=== PATIENT | female | born 1985 | race Caucasian/White ===

== ENCOUNTER 2024-06-08 23:00 | Inpatient (IN) | payer MEDICAID ==
[~2024-06-08] VITALS: Ht 149.9 cm; Wt 55.9 kg
[2024-06-09] MEDS: KETOROLAC TROMETHAMINE 30 MG/ML VIAL IM ONE (01:32)
[2024-06-09] MEDS: HYDROCODONE/ACETAMINOPHEN 5-325 MG TABLET PO ONE (01:32)
[2024-06-09] MEDS: OxyCODONE HCL 5 MG IR TABLET PO ONE (03:57)
[2024-06-09 05:18] LABS: BASOPHILS % (AUTO) 0.2 % (0.0-2.0); EOSINOPHILS % (AUTO) 0 % (1.0-6.0); HEMATOCRIT 27.9 % (36-46); HEMOGLOBIN 8.2 g/dL (12.0-16.0); LYMPHOCYTES # (AUTO) 0.6 K/uL (1.0-4.8); LYMPHOCYTES % (AUTO) 4.6 % (22.0-44.0); MEAN CORPUSCULAR HGB CONC 29.3 G/dL (31.0-37.0); MEAN CORPUSCULAR VOLUME 72 fL (80-100); MONOCYTES # (AUTO) 0.3 K/uL (0.1-1.0); MONOCYTES % (AUTO) 2.5 % (2.0-9.0); NEUTROPHILS # (AUTO) 11.6 K/uL (1.8-7.7); PLATELET COUNT (AUTO) 429 K/uL (150-450); RED CELL DISTRIBUTION WIDTH 19.2 % (11.5-14.5); WHITE BLOOD COUNT (AUTO) 12.5 K/uL (4.5-11.0)
[2024-06-09 05:25] LABS: NEUTROPHILS % (AUTO) 92.7 % (40.0-70.0)
[2024-06-09 05:26] LABS: ANION GAP 9 mmol/L (8-16); CARBON DIOXIDE 25 mmol/L (22-29); CHLORIDE 104 mmol/L (98-107); CREATININE 0.58 mg/dL (0.60-1.30); GLOMERULAR FILTR. RATE CALC > 60 mL/min (>60); POTASSIUM 4.1 mmol/L (3.5-5.1); SODIUM SERUM 138 mmol/L (136-145)
[2024-06-09 05:38] LABS: GLUCOSE,RANDOM 146 mg/dL (70-110); UREA NITROGEN, BLOOD 12 mg/dL (7-18)
[2024-06-09 05:47] LABS: RBC MORPHOLOGY COMMENT ABNORMAL RBC MORPH
[2024-06-09] MEDS: MORPHINE SULFATE 4 MG/ML SYRINGE IVP ONE (06:00)
[2024-06-09 11:33] VITALS: BP 101/63; PULSE 72; RESP 18; TEMP 97.9; O2SAT 100
[2024-06-09] MEDS ORDERED: MORPHINE SULFATE 2 MG/ML SYRINGE IVP PRN (11:45)
[2024-06-09] MEDS ORDERED: MAGNESIUM HYDROXIDE SUSPENSION 30 ML UDCUP PO PRN (11:45)
[2024-06-09] MEDS ORDERED: BISACODYL 10 MG RECTAL RECTAL SUPPOSITORY PR PRN (11:45)
[2024-06-09] MEDS: HYDROCODONE/ACETAMINOPHEN 5-325 MG TABLET PO PRN (12:40)
[2024-06-09] MEDS: PredniSONE 20 MG TABLET PO SCH (12:40)
[2024-06-09] MEDS ORDERED: METH2.5T47 PO (13:43)
[2024-06-09] MEDS ORDERED: FOLI-130 PO (13:43)
[2024-06-09] MEDS ORDERED: ETAN50PE2 IM (13:43)
[2024-06-09] MEDS ORDERED: PRED5TAB2 PO (13:43)
[2024-06-09] MEDS ORDERED: NORE0.3520 PO (13:43)
[2024-06-09 14:57] LABS: ALCOHOL, URINE DRUG SCREEN NEGATIVE (NEGATIVE); AMPHET/METH SCREEN,URINE NEGATIVE (NEGATIVE); BARBITURATE SCREEN, URINE NEGATIVE (NEGATIVE); BENZODIAZEPINES SCREEN,URINE NEGATIVE (NEGATIVE); CANNABINOID SCREEN,URINE NEGATIVE (NEGATIVE); COCAINE SCREEN,URINE NEGATIVE (NEGATIVE); METHADONE SCREEN, URINE NEGATIVE (NEGATIVE); OPIATE SCREEN,URINE POSITIVE (NEGATIVE); PHENCYCLIDINE SCREEN,URINE NEGATIVE (NEGATIVE)
[2024-06-09] MEDS: HEPARIN SODIUM,PORCINE 5,000 UNITS/ML VIAL SQ SCH (15:02)
[2024-06-09] MEDS: IBUPROFEN 800 MG TABLET PO SCH (15:02)
[2024-06-09 15:18] VITALS: BP 105/66; PULSE 74; RESP 18; TEMP 98.4; O2SAT 100
[2024-06-09] MEDS: ACETAMINOPHEN 325 MG TABLET PO PRN (16:59)
[2024-06-09 20:01] VITALS: BP 101/65; PULSE 73; RESP 18; TEMP 98.6; O2SAT 98
[2024-06-09] MEDS: DOCUSATE SODIUM 100 MG CAPSULE PO SCH (20:16)
[2024-06-10 04:33] VITALS: BP 100/58; PULSE 75; RESP 18; TEMP 98.1; O2SAT 98
[2024-06-10 07:08] LABS: BASOPHILS % (AUTO) 0.3 % (0.0-2.0); EOSINOPHILS % (AUTO) 0.6 % (1.0-6.0); HEMOGLOBIN 7.9 g/dL (12.0-16.0); LYMPHOCYTES # (AUTO) 2.5 K/uL (1.0-4.8); LYMPHOCYTES % (AUTO) 23.5 % (22.0-44.0); MEAN CORPUSCULAR HEMOGLOBIN 20.9 pg (26.0-34.0); MEAN CORPUSCULAR HGB CONC 29.2 G/dL (31.0-37.0); MEAN CORPUSCULAR VOLUME 72 fL (80-100); MONOCYTES # (AUTO) 0.9 K/uL (0.1-1.0); MONOCYTES % (AUTO) 8.9 % (2.0-9.0); NEUTROPHILS # (AUTO) 7.1 K/uL (1.8-7.7); NEUTROPHILS % (AUTO) 66.7 % (40.0-70.0); PLATELET COUNT (AUTO) 406 K/uL (150-450); RED BLOOD CELL COUNT(AUTO) 3.77 MIL/uL (4.00-5.20); RED CELL DISTRIBUTION WIDTH 19.6 % (11.5-14.5); WHITE BLOOD COUNT (AUTO) 10.6 K/uL (4.5-11.0)
[2024-06-10 07:15] LABS: RBC MORPHOLOGY COMMENT ABNORMAL RBC MORPH
[2024-06-10 07:22] LABS: ANION GAP 10 mmol/L (8-16); CALCIUM, TOTAL 8.6 mg/dL (8.8-10.5); CARBON DIOXIDE 25 mmol/L (22-29); CHLORIDE 105 mmol/L (98-107); CREATININE 0.67 mg/dL (0.60-1.30); GLOMERULAR FILTR. RATE CALC > 60 mL/min (>60); GLUCOSE,RANDOM 100 mg/dL (70-110); POTASSIUM 3.6 mmol/L (3.5-5.1); SODIUM SERUM 140 mmol/L (136-145); UREA NITROGEN, BLOOD 17 mg/dL (7-18)
[2024-06-10 08:00] VITALS: BP 104/74; PULSE 77; RESP 19; TEMP 98.1; O2SAT 97
[2024-06-10] MEDS: PANTOPRAZOLE SODIUM 40 MG DR TABLET PO SCH (08:51)
[2024-06-10] MEDS: METHOTREXATE SODIUM 2.5 MG TABLET PO SCH (12:13)
[2024-06-10 14:54] VITALS: BP 114/81; RESP 19; O2SAT 99
[2024-06-10] MEDS: MORPHINE SULFATE 2 MG/ML SYRINGE IVP PRN (14:56)
[2024-06-10 16:00] VITALS: BP 108/73; PULSE 66; RESP 18; TEMP 98; O2SAT 99
[2024-06-10 19:25] VITALS: BP 120/69; PULSE 74; RESP 18; TEMP 98; O2SAT 98
[2024-06-11] MEDS: ZOLPIDEM TARTRATE 5 MG TABLET PO PRN (01:25)
[2024-06-11 05:25] VITALS: BP 123/65; PULSE 80; RESP 18; TEMP 97.5; O2SAT 99
[2024-06-11 06:55] LABS: BASOPHILS % (AUTO) 0.7 % (0.0-2.0); EOSINOPHILS % (AUTO) 1.1 % (1.0-6.0); HEMATOCRIT 26.2 % (36-46); HEMOGLOBIN 7.7 g/dL (12.0-16.0); LYMPHOCYTES # (AUTO) 3.3 K/uL (1.0-4.8); LYMPHOCYTES % (AUTO) 36.6 % (22.0-44.0); MEAN CORPUSCULAR HEMOGLOBIN 21.2 pg (26.0-34.0); MEAN CORPUSCULAR HGB CONC 29.5 G/dL (31.0-37.0); MEAN CORPUSCULAR VOLUME 72 fL (80-100); MONOCYTES # (AUTO) 0.4 K/uL (0.1-1.0); MONOCYTES % (AUTO) 4.8 % (2.0-9.0); NEUTROPHILS # (AUTO) 5.1 K/uL (1.8-7.7); NEUTROPHILS % (AUTO) 56.8 % (40.0-70.0); PLATELET COUNT (AUTO) 392 K/uL (150-450); RED BLOOD CELL COUNT(AUTO) 3.65 MIL/uL (4.00-5.20); RED CELL DISTRIBUTION WIDTH 19.3 % (11.5-14.5)
[2024-06-11 07:03] LABS: ANION GAP 10 mmol/L (8-16); CALCIUM, TOTAL 8.6 mg/dL (8.8-10.5); CARBON DIOXIDE 24 mmol/L (22-29); CHLORIDE 105 mmol/L (98-107); CREATININE 0.63 mg/dL (0.60-1.30); GLOMERULAR FILTR. RATE CALC > 60 mL/min (>60); GLUCOSE,RANDOM 86 mg/dL (70-110); POTASSIUM 3.6 mmol/L (3.5-5.1); SODIUM SERUM 139 mmol/L (136-145); UREA NITROGEN, BLOOD 12 mg/dL (7-18)
[2024-06-11 07:49] VITALS: BP 98/70; PULSE 59; RESP 18; TEMP 98.3; O2SAT 99
[2024-06-11] MEDS: TraMADol HCL 50 MG TABLET PO PRN (14:34)
[2024-06-11 15:37] VITALS: BP 114/63; PULSE 71; RESP 18; TEMP 98.7; O2SAT 100
[2024-06-11] MEDS ORDERED: INFLUENZA VIRUS VACCINE TVS (6MO+) 2024-25/PF 45 MCG/0.5 ML SYRINGE IM. ONE (19:00)
[2024-06-11 20:38] VITALS: BP 98/66; PULSE 69; RESP 18; TEMP 98.2; O2SAT 98
[2024-06-12 04:36] VITALS: BP 115/71; PULSE 58; RESP 18; TEMP 97.9; O2SAT 100
[2024-06-12 07:28] VITALS: BP 122/74; PULSE 62; RESP 18; TEMP 98.2; O2SAT 98
[2024-06-12 08:03] LABS: BASOPHILS % (AUTO) 0.7 % (0.0-2.0); EOSINOPHILS % (AUTO) 1.4 % (1.0-6.0); HEMATOCRIT 26.6 % (36-46); HEMOGLOBIN 7.8 g/dL (12.0-16.0); LYMPHOCYTES # (AUTO) 3.4 K/uL (1.0-4.8); LYMPHOCYTES % (AUTO) 41.7 % (22.0-44.0); MEAN CORPUSCULAR HEMOGLOBIN 21.1 pg (26.0-34.0); MEAN CORPUSCULAR HGB CONC 29.5 G/dL (31.0-37.0); MEAN CORPUSCULAR VOLUME 72 fL (80-100); MONOCYTES # (AUTO) 0.2 K/uL (0.1-1.0); MONOCYTES % (AUTO) 2.9 % (2.0-9.0); NEUTROPHILS # (AUTO) 4.3 K/uL (1.8-7.7); NEUTROPHILS % (AUTO) 53.3 % (40.0-70.0); PLATELET COUNT (AUTO) 395 K/uL (150-450); RED BLOOD CELL COUNT(AUTO) 3.72 MIL/uL (4.00-5.20); RED CELL DISTRIBUTION WIDTH 18.9 % (11.5-14.5); WHITE BLOOD COUNT (AUTO) 8.1 K/uL (4.5-11.0)
[2024-06-12 08:09] LABS: ANION GAP 7 mmol/L (8-16); CALCIUM, TOTAL 8.7 mg/dL (8.8-10.5); CARBON DIOXIDE 27 mmol/L (22-29); CHLORIDE 105 mmol/L (98-107); CREATININE 0.53 mg/dL (0.60-1.30); GLOMERULAR FILTR. RATE CALC > 60 mL/min (>60); GLUCOSE,RANDOM 90 mg/dL (70-110); POTASSIUM 3.7 mmol/L (3.5-5.1); SODIUM SERUM 139 mmol/L (136-145); UREA NITROGEN, BLOOD 15 mg/dL (7-18)
[2024-06-12 16:33] VITALS: BP 126/76; PULSE 64; RESP 20; TEMP 97.9; O2SAT 97
[2024-06-12 20:15] VITALS: BP 118/75; PULSE 69; RESP 18; TEMP 97.9; O2SAT 98
[2024-06-13 04:20] VITALS: BP 108/66; PULSE 63; RESP 18; TEMP 97.9; O2SAT 100
[2024-06-13 08:44] VITALS: BP 95/67; PULSE 64; RESP 18; TEMP 98; O2SAT 96
[2024-06-13] MEDS: ONDANSETRON HCL 4 MG/2 ML VIAL IVP PRN (14:29)
[2024-06-13] MEDS ORDERED: TRAM50TA5 PO (15:06)
[2024-06-13] MEDS ORDERED: METH2.5T47 PO (15:06)
[2024-06-13] MEDS ORDERED: PRED5TAB2 PO (15:06)
[2024-06-13 16:55] VITALS: BP 108/75; PULSE 93; RESP 20; TEMP 98.9; O2SAT 99
== END 2024-06-13 18:00 | disposition home or self-care (01) | DRG 346 ==
LOC: EMS 23:00 → EDH 06-09 09:49 → 6S 06-09 11:20 → 4E 06-10 18:42
PROVIDERS: ADMIT Internal Medicine; ATTEND Internal Medicine
DX: M06.862 Other specified rheumatoid arthritis, left knee (principal); D72.829 Elevated white blood cell count, unspecified; R53.81 Other malaise; R26.2 Difficulty in walking, not elsewhere classified; M79.602 Pain in left arm
CPT/HCPCS: 80048; 80307; 85025; 96372; 96374; 97110; 97116; 97163; 97167; 97530; 99285; G0378; J1644; J1885; J2270; J2405; J8610

== ENCOUNTER 2025-01-14 17:47 | Inpatient (IN) | payer MEDICAID ==
[~2025-01-14] VITALS: Ht 152.4 cm; Wt 53.4 kg
[~2025-01-14 17:47] MED LIST: FOLI-130 PO; METH2.5T47 PO; NORE0.3520 PO; PRED5TAB2 PO; TRAM50TA5 PO
[2025-01-14] MEDS ORDERED: ETAN50PE2 SQ (18:36)
[2025-01-14] MEDS ORDERED: HYDR30OI13 TP (18:36)
[2025-01-14] MEDS ORDERED: PREN-217 PO (18:36)
[2025-01-14 18:38] LABS: CALCIUM, TOTAL 9.1 mg/dL (8.8-10.5); CREATININE 0.90 mg/dL (0.60-1.30); GLOMERULAR FILTR. RATE CALC > 60 mL/min (>60); GLUCOSE,RANDOM 146 mg/dL (70-110); SODIUM SERUM 137 mmol/L (136-145); UREA NITROGEN, BLOOD 19 mg/dL (7-18)
[2025-01-14 18:42] LABS: PLATELET COUNT (AUTO) 170 K/uL (150-450); RED BLOOD CELL COUNT(AUTO) 4.49 MIL/uL (4.00-5.20); RED CELL DISTRIBUTION WIDTH 17.2 % (11.5-14.5); WHITE BLOOD COUNT (AUTO) 26.4 K/uL (4.5-11.0)
[2025-01-14 18:44] LABS: ASPARTATE AMINOTRANSFERASE 31.0 U/L (15-37); TOTAL PROTEIN, SERUM 7.3 g/dL (6.4-8.2)
[2025-01-14 18:58] LABS: RBC MORPHOLOGY COMMENT ABNORMAL RBC MORPH
[2025-01-14] MEDS ORDERED: SODIUM CHLORIDE 0.9% 100 ML ONE (19:04)
[2025-01-14] MEDS ORDERED: IOHEXOL 350 MG/ML 100 ML VIAL ONE (19:04)
[2025-01-14 19:41] LABS: LACTIC ACID 1.5 mmol/L (0.4-2.0)
[2025-01-14 20:00] LABS: COVID AG,FIA SOURCE NASAL SWAB
[2025-01-14 20:05] LABS: APPEARANCE,URINE TURBID (CLEAR); GLUCOSE, URINE (UA) NEGATIVE (NEGATIVE); LEUKOCYTE ESTERASE ,URINE LARGE (NEGATIVE); NITRATE,URINE POSITIVE (NEGATIVE); OCCULT BLOOD,URINE SMALL (NEGATIVE)
[2025-01-14 20:11] LABS: SPECIFIC GRAVITIY, URINE > 1.050 (1.003-1.030)
[2025-01-14] MEDS: CEFEPIME HCL 2 GM in DEXTROSE 5%-WATER 50 ML IV ONE (20:17)
[2025-01-14] MEDS: SODIUM CHLORIDE 0.9% 1,000 ML IV ONE (20:17)
[2025-01-14] MEDS: SODIUM CHLORIDE 0.9% 700 ML IV ONE (20:19)
[2025-01-14] MEDS: KETOROLAC TROMETHAMINE 30 MG/ML VIAL IVP ONE (20:19)
[2025-01-14 20:22] LABS: SARS-COV2 (COVID) ANTIGEN,FIA Negative (Negative)
[2025-01-14 20:23] LABS: INFLUENZA TYPE A NEGATIVE FOR TYPE A (NEGATIVE); INFLUENZA TYPE B NEGATIVE FOR TYPE B (NEGATIVE)
[2025-01-14 20:24] LABS: SULFOSALICYLIC ACID,URINE 4+ (Negative)
[2025-01-14] MEDS: POTASSIUM CHLORIDE 20 MEQ ER TABLET PO ONE (22:15)
[2025-01-14] MEDS ORDERED: POTASSIUM CHLORIDE 20 MEQ ER TABLET PO PRN (23:00)
[2025-01-14] MEDS ORDERED: ALBUTEROL SULFATE 2.5 MG/0.5 ML NEB SOLUTION NEB PRN (23:00)
[2025-01-14] MEDS ORDERED: IPRATROPIUM BROMIDE 0.5 MG/2.5 ML NEB SOLUTION NEB PRN (23:00)
[2025-01-14] MEDS ORDERED: BISACODYL 10 MG RECTAL RECTAL SUPPOSITORY PR PRN (23:00)
[2025-01-14] MEDS ORDERED: ONDANSETRON HCL 4 MG/2 ML VIAL IVP PRN (23:00)
[2025-01-14] MEDS ORDERED: MAGNESIUM SULFATE 4 GM/WATER 100 ML IV PRN (23:00)
[2025-01-14] MEDS ORDERED: MAGNESIUM SULFATE 2 GM/WATER 50 ML IV PRN (23:00)
[2025-01-14] MEDS ORDERED: MAGNESIUM HYDROXIDE SUSPENSION 30 ML UDCUP PO PRN (23:00)
[2025-01-14] MEDS ORDERED: ZOLPIDEM TARTRATE 5 MG TABLET PO PRN (23:00)
[2025-01-14] MEDS ORDERED: POTASSIUM CHL 10 MEQ/WATER 50 ML IV PRN (23:00)
[2025-01-14] MEDS ORDERED: MORPHINE SULFATE 2 MG/ML SYRINGE IVP PRN (23:00)
[2025-01-14] MEDS: HEPARIN SODIUM,PORCINE 5,000 UNITS/ML VIAL SQ SCH (23:12)
[2025-01-14 23:20] VITALS: BP 116/77; PULSE 103; RESP 18; TEMP 98.8; O2SAT 97
[2025-01-15] MEDS ORDERED: SODIUM CHLORIDE 0.9% 500 ML IV ONE (00:05)
[2025-01-15] MEDS: CefTRIAXone 1 GM/DEXTROSE 50 ML IV SCH (00:08)
[2025-01-15 07:45] VITALS: BP 99/63; PULSE 145; RESP 18; TEMP 103.1; O2SAT 97
[2025-01-15 07:57] VITALS: BP 90/62; PULSE 138; RESP 18; TEMP 101.3; O2SAT 97
[2025-01-15] MEDS: PANTOPRAZOLE SODIUM 40 MG DR TABLET PO SCH (08:02)
[2025-01-15] MEDS: ACETAMINOPHEN 325 MG TABLET PO PRN (08:02)
[2025-01-15] MEDS: SODIUM CHLORIDE 0.9% 1,000 ML IV SCH (08:16)
[2025-01-15 08:19] LABS: CALCIUM, TOTAL 7.9 mg/dL (8.8-10.5); CREATININE 1.05 mg/dL (0.60-1.30); GLOMERULAR FILTR. RATE CALC 59.0 mL/min (>60); GLUCOSE,RANDOM 128.0 mg/dL (70-110); SODIUM SERUM 137.0 mmol/L (136-145); UREA NITROGEN, BLOOD 15.0 mg/dL (7-18)
[2025-01-15 12:00] VITALS: BP 104/68; PULSE 109; RESP 18; TEMP 98.8; O2SAT 100
[2025-01-15] MEDS: MAGNESIUM OXIDE 400 MG TABLET PO PRN (15:34)
[2025-01-15 16:05] VITALS: BP 91/65; PULSE 135; RESP 18; TEMP 98.4; O2SAT 99
[2025-01-15 20:15] VITALS: BP 118/75; PULSE 101; RESP 18; TEMP 99.4; O2SAT 98
[2025-01-16 06:43] VITALS: BP 100/70; PULSE 91; RESP 18; TEMP 98.4; O2SAT 98
[2025-01-16 08:00] VITALS: BP 95/67; PULSE 108; RESP 18; TEMP 98.2; O2SAT 98
[2025-01-16 09:13] LABS: CALCIUM, TOTAL 8.5 mg/dL (8.8-10.5); CREATININE 0.82 mg/dL (0.60-1.30); GLOMERULAR FILTR. RATE CALC > 60 mL/min (>60); GLUCOSE,RANDOM 95 mg/dL (70-110); SODIUM SERUM 137 mmol/L (136-145); UREA NITROGEN, BLOOD 7 mg/dL (7-18)
[2025-01-16 09:47] LABS: PLATELET COUNT (AUTO) 118 K/uL (150-450); RED BLOOD CELL COUNT(AUTO) 3.93 MIL/uL (4.00-5.20); RED CELL DISTRIBUTION WIDTH 17.3 % (11.5-14.5); WHITE BLOOD COUNT (AUTO) 7.5 K/uL (4.5-11.0)
[2025-01-16 09:50] LABS: RBC MORPHOLOGY COMMENT ABNORMAL RBC MORPH
[2025-01-16] MEDS: CefTRIAXone SODIUM 2 GM in DEXTROSE 5%-WATER 50 ML IV SCH (14:31)
[2025-01-16 15:10] VITALS: BP 97/67; PULSE 128; RESP 19; TEMP 98; O2SAT 99
[2025-01-16 20:00] VITALS: BP 111/79; PULSE 126; RESP 18; TEMP 102.7; O2SAT 96
[2025-01-16 22:40] VITALS: BP 108/79; PULSE 119; RESP 18; TEMP 100.1; O2SAT 98
[2025-01-17] VITALS (17 sets, daily range): BP systolic 91–119; BP diastolic 65–90; PULSE 91–126; RESP 16–18; TEMP 98–102.9; O2SAT 93–100
[2025-01-17] MEDS: HYDROCODONE/ACETAMINOPHEN 5-325 MG TABLET PO PRN (01:11)
[2025-01-17 07:03] LABS: PLATELET COUNT (AUTO) 141 K/uL (150-450); RED BLOOD CELL COUNT(AUTO) 3.54 MIL/uL (4.00-5.20); RED CELL DISTRIBUTION WIDTH 17.4 % (11.5-14.5); WHITE BLOOD COUNT (AUTO) 7.9 K/uL (4.5-11.0)
[2025-01-17 07:15] LABS: CALCIUM, TOTAL 8.1 mg/dL (8.8-10.5); CREATININE 0.61 mg/dL (0.60-1.30); GLOMERULAR FILTR. RATE CALC > 60 mL/min (>60); GLUCOSE,RANDOM 104 mg/dL (70-110); SODIUM SERUM 136 mmol/L (136-145); UREA NITROGEN, BLOOD 10 mg/dL (7-18)
[2025-01-17 09:26] LABS: BAND NEUTROPHILS % (MANUAL) 8 % (0-5); LYMPHOCYTES % (MANUAL) 22 % (22-44); MONOCYTES % (MANUAL) 4 % (2-9); RBC MORPHOLOGY COMMENT ABNORMAL RBC MORPH; SEGMENTED NEUTROPHILS % 66 % (40-70)
[2025-01-17 09:31] LABS: TROPONIN I-HIGH SENSITIVITY Less Than 4 ng/L (<51)
[2025-01-18] VITALS (7 sets, daily range): BP systolic 99–112; BP diastolic 67–86; PULSE 86–97; RESP 16–18; TEMP 97.6–98.6; O2SAT 92–100
[2025-01-18 06:52] LABS: PLATELET COUNT (AUTO) 192 K/uL (150-450); RED BLOOD CELL COUNT(AUTO) 4.08 MIL/uL (4.00-5.20); RED CELL DISTRIBUTION WIDTH 20.4 % (11.5-14.5); WHITE BLOOD COUNT (AUTO) 8.6 K/uL (4.5-11.0)
[2025-01-18 07:06] LABS: CALCIUM, TOTAL 8.3 mg/dL (8.8-10.5); CREATININE 0.72 mg/dL (0.60-1.30); GLOMERULAR FILTR. RATE CALC > 60 mL/min (>60); GLUCOSE,RANDOM 100 mg/dL (70-110); SODIUM SERUM 136 mmol/L (136-145); UREA NITROGEN, BLOOD 4 mg/dL (7-18)
[2025-01-18 08:15] LABS: BAND NEUTROPHILS % (MANUAL) 1 % (0-5); LYMPHOCYTES % (MANUAL) 28 % (22-44); MONOCYTES % (MANUAL) 3 % (2-9); SEGMENTED NEUTROPHILS % 68 % (40-70)
[2025-01-18 08:16] LABS: RBC MORPHOLOGY COMMENT ABNORMAL RBC MORPH
[2025-01-19] VITALS (8 sets, daily range): BP systolic 105–122; BP diastolic 66–92; PULSE 88–150; RESP 18–20; TEMP 97.1–100.8; O2SAT 96–99
[2025-01-19 06:47] LABS: PLATELET COUNT (AUTO) 284 K/uL (150-450); RED BLOOD CELL COUNT(AUTO) 3.95 MIL/uL (4.00-5.20); RED CELL DISTRIBUTION WIDTH 19.9 % (11.5-14.5); WHITE BLOOD COUNT (AUTO) 10.0 K/uL (4.5-11.0)
[2025-01-19 06:55] LABS: CALCIUM, TOTAL 7.9 mg/dL (8.8-10.5); CREATININE 0.61 mg/dL (0.60-1.30); GLOMERULAR FILTR. RATE CALC > 60 mL/min (>60); GLUCOSE,RANDOM 88 mg/dL (70-110); SODIUM SERUM 137 mmol/L (136-145); UREA NITROGEN, BLOOD 6 mg/dL (7-18)
[2025-01-19 07:41] LABS: RBC MORPHOLOGY COMMENT ABNORMAL RBC MORPH
[2025-01-19] MEDS ORDERED: LEVO750T68 PO (16:48)
[2025-01-19] MEDS ORDERED: DOCU-119 PO (16:51)
[2025-01-19] MEDS ORDERED: FERR325T27 PO (16:51)
[2025-01-19 20:16] LABS: % IRON SATURATION 4.9 % (22-44); IRON, SERUM 12.0 mcg/dL (50-175)
[2025-01-19 21:43] LABS: TROPONIN I-HIGH SENSITIVITY 5 ng/L (<51)
[2025-01-19] MEDS: SODIUM CHLORIDE 0.9% 250 ML IV ONE (22:16)
[2025-01-20] VITALS (7 sets, daily range): BP systolic 99–122; BP diastolic 60–78; PULSE 77–102; RESP 16–18; TEMP 98.2–99.5; O2SAT 97–99
[2025-01-20] MEDS: MORPHINE SULFATE 4 MG/ML SYRINGE IVP PRN (00:45)
[2025-01-20 07:39] LABS: PLATELET COUNT (AUTO) 387 K/uL (150-450); RED BLOOD CELL COUNT(AUTO) 3.79 MIL/uL (4.00-5.20); RED CELL DISTRIBUTION WIDTH 20.2 % (11.5-14.5); WHITE BLOOD COUNT (AUTO) 11.9 K/uL (4.5-11.0)
[2025-01-20 07:47] LABS: CALCIUM, TOTAL 8.1 mg/dL (8.8-10.5); CREATININE 0.62 mg/dL (0.60-1.30); GLOMERULAR FILTR. RATE CALC > 60 mL/min (>60); GLUCOSE,RANDOM 88 mg/dL (70-110); SODIUM SERUM 135 mmol/L (136-145); UREA NITROGEN, BLOOD 2 mg/dL (7-18)
[2025-01-20 07:50] LABS: RBC MORPHOLOGY COMMENT ABNORMAL RBC MORPH
[2025-01-21 00:59] VITALS: BP 98/63; PULSE 85; RESP 16; TEMP 98.2; O2SAT 97
[2025-01-21 04:45] VITALS: BP 97/60; PULSE 85; RESP 16; TEMP 98.2; O2SAT 97
[2025-01-21 08:30] VITALS: BP_SYST 104; BP_SYST 118; BP_DIAS 68; BP_DIAS 84; PULSE 72; PULSE 83; RESP 14; RESP 16; TEMP 98; TEMP 98.4; O2SAT 100; O2SAT 98
[2025-01-21 12:16] VITALS: BP 101/68; PULSE 82; RESP 16; TEMP 98; O2SAT 97
[2025-01-21 12:36] LABS: PLATELET COUNT (AUTO) 514 K/uL (150-450); RED BLOOD CELL COUNT(AUTO) 4.03 MIL/uL (4.00-5.20); RED CELL DISTRIBUTION WIDTH 21.2 % (11.5-14.5); WHITE BLOOD COUNT (AUTO) 10.4 K/uL (4.5-11.0)
[2025-01-21 13:22] LABS: CALCIUM, TOTAL 8.0 mg/dL (8.8-10.5); CREATININE 0.55 mg/dL (0.60-1.30); GLOMERULAR FILTR. RATE CALC > 60 mL/min (>60); GLUCOSE,RANDOM 100 mg/dL (70-110); SODIUM SERUM 140 mmol/L (136-145); UREA NITROGEN, BLOOD 2 mg/dL (7-18)
[2025-01-21 16:59] VITALS: BP 105/69; PULSE 83; RESP 18; TEMP 98.4; O2SAT 98
== END 2025-01-21 20:20 | disposition home or self-care (01) | DRG 720 ==
LOC: EMS 17:47 → EDH 20:13 → 6S 22:30 → 5N 01-16 23:35
PROVIDERS: ADMIT Hospitalist; ATTEND Hospitalist
PROC: 30233N1 Transfusion of Nonautologous Red Blood Cells into Peripheral Vein, Percutaneous Approach (ICD-10-PCS; principal; 2025-01-17)
PROC: 05H933Z Insertion of Infusion Device into Right Brachial Vein, Percutaneous Approach (ICD-10-PCS; 2025-01-18)
PROC: B54MZZA Ultrasonography of Right Upper Extremity Veins, Guidance (ICD-10-PCS; 2025-01-18)
DX: A41.9 Sepsis, unspecified organism (principal); E43 Unspecified severe protein-calorie malnutrition; D69.6 Thrombocytopenia, unspecified; E83.51 Hypocalcemia; E88.09 Other disorders of plasma-protein metabolism, not elsewhere classified; N12 Tubulo-interstitial nephritis, not specified as acute or chronic; E87.6 Hypokalemia; B96.20 Unspecified Escherichia coli [E. coli] as the cause of diseases classified elsewhere; M06.9 Rheumatoid arthritis, unspecified; Z20.822 Contact with and (suspected) exposure to COVID-19; Z68.23 Body mass index [BMI] 23.0-23.9, adult; Z79.899 Other long term (current) drug therapy
CPT/HCPCS: 36245; 36569; 71045; 74177; 76937; 80048; 80076; 81001; 81002; 82040; 83540; 83550; 83605; 83735; 84484; 84703; 85025; 86850; 86900; 86901; 86923; 87040; 87077; 87086; 87186; 87205; 87804; 93005; 99285; J0692; J0696; J1644; J1885; J2270; J7030; J7040; J7050; J7060; P9016; 36415-L1; 36415-TC